=== PATIENT | female | born 1990 | race Caucasian/White ===

== ENCOUNTER 2024-02-29 01:25 | Inpatient (IN) | payer BC ==
[2024-02-29 01:52] VITALS: BMI 40.0
[2024-02-29 03:12] LABS: Creatinine, Urine 130.87 mg/dL (47-110)
[2024-02-29 03:51] LABS: MDiff Complete? YES; Mean Corpuscular HGB CONC 32.3 g/dL (32.0-36.0); Mean Corpuscular Hemoglobin 26.5 pg (27.0-33.0); Mean Corpuscular Volume 82.2 fL (81.6-98.3); Mean Platelet Volume 12.2 fL (7.4-10.4); Platelet Count 206 10x3/uL (150-450); RBC Distribution Width 14.6 % (11.5-14.5); Red Blood Cell (RBC) Count 3.77 10x6/uL (3.90-5.03); White Blood Cell (WBC) Count 10.7 10x3/uL (3.5-10.5)
[2024-02-29 03:52] LABS: ALT (SGPT) 7 U/L (8-55); AST (SGOT) 12 U/L (5-34); Albumin 2.4 g/dL (3.5-5.0); Alkaline Phosphatase 163 U/L (40-110); Anion Gap 15 mmol/L (10-20); BUN (Urea Nitrogen) 10 mg/dL (7.0-18.7); Bilirubin, Total 0.2 mg/dL (0.2-1.2); Calc. Creatinine Clearance 160 mL/min (70-130); Calcium 9.1 mg/dL (7.8-10.44); Carbon Dioxide 16 mmol/L (22-29); Chloride 110 mmol/L (98-107); Estimated GFR 107; Globulin 3.9 g/dL (2.4-3.5); Glucose 124 mg/dL (70-105); Protein, Total 6.3 g/dL (6.0-8.3); Sodium 137 mmol/L (136-145)
[2024-02-29 04:26] LABS: Bilirubin Neg (Negative); Blood, Urine Negative (Negative); Clarity Clear (Clear); Glucose, Urine (Dipstick) Normal (Negative); Ketone, Urine Negative (Negative); Leukocyte Negative (Negative); Nitrite Negative (Negative); Protein, Urine (Dipstick) 30 mg/dl (Neg-Trace); Specific Gravity, Urine 1.025 (1.005-1.030); Urobilinogen Normal mg/dL (Less than 2)
[2024-02-29 05:07] LABS: CAUTI Indications for Culture Pelvic or flank pain; RBC/HPF 0-3 HPF (0-3); Squamous Epithelial 0-3 HPF (0-3); WBC/HPF 0-3 HPF (0-3)
[2024-02-29 05:08] LABS: Bacteria/HPF 1+ HPF (None Seen); Mucous/LPF Rare LPF (<2+)
[2024-02-29 05:09] LABS: Urine Culture Reflex No No
[2024-02-29 05:14] LABS: Band 2 % (5-11); Lymphocytes 15 % (21-51); Monocytes 11 % (0-10); Neutrophil 70 % (42-75); Reactive Lymphocytes 2 % (0-10)
[2024-02-29] MEDS ORDERED: Labetalol HCl 100 MG/20 ML VIAL SLOW IVP PRN ×3 (05:19)
[2024-02-29] MEDS ORDERED: Lidocaine 1% (PF) 30 ML VIAL SC PRN (05:19)
[2024-02-29] MEDS ORDERED: Promethazine HCl 25 MG/ML VIAL IM PRN ×3 (05:19→16:45)
[2024-02-29] MEDS ORDERED: hydrALAZINE 20 MG/ML VIAL SLOW IVP PRN ×3 (05:19→16:45)
[2024-02-29] MEDS ORDERED: Lorazepam 2 MG/ML VIAL SLOW IVP PRN (05:19)
[2024-02-29] MEDS ORDERED: Acetaminophen 500 MG TAB PO PRN (05:19)
[2024-02-29] MEDS ORDERED: Calcium Gluc 4.6 MEQ/10 ML (100 MG/ML) SLOW IVP PRN (05:19)
[2024-02-29] MEDS ORDERED: fentaNYL 50 mcg/mL 1 mL Vial SLOW IVP PRN (05:19)
[2024-02-29 05:25] LABS: Large Platelets SLIGHT (None Seen); Platelet Adequacy Comment Appears Adequate; RBC Morph Comment Within Normal Limits
[2024-02-29] MEDS ORDERED: Penicillin G Potassium 5 MILL.UNITS in Sodium Chloride 0.9% 100 ML IVPB SCH (05:30)
[2024-02-29] MEDS ORDERED: Oxytocin 30 units/NS 500 ML 500 ML IV SCH ×2 (05:30)
[2024-02-29 06:45] LABS: HBsAg Index 0.23 S/CO (0-0.99); Hep B Surf Ag - L&D Non-Reactive S/CO (NonReactive)
[2024-02-29 06:46] LABS: Syphilis Antibody Nonreactive (Nonreactive); Syphilis Antibody Index 0.04 S/CO (<1.00 Non-Reactive)
[2024-02-29] MEDS ORDERED: Bupivacaine/Epinephrine 0.25% 30 ML VIAL ONE (08:00)
[2024-02-29] MEDS: Ondansetron PF 4 MG/2 ML Vial IVP PRN (08:31)
[2024-02-29] MEDS: fentaNYL 2 mcg/Ropivacaine 0.2% Epidural 100 ML CADD EPIDURAL SCH (09:01)
[2024-02-29] MEDS ORDERED: Moisturizing Cream (Eucerin) 113 GM JAR TOP PRN (09:16)
[2024-02-29] MEDS ORDERED: Lactated Ringer's 500 ML IV PRN (09:16)
[2024-02-29] MEDS ORDERED: diphenhydrAMINE 50 MG/ML VIAL IVP PRN (09:16)
[2024-02-29] MEDS ORDERED: Ondansetron PF 4 MG/2 ML Vial IVP PRN ×2 (09:16→16:45)
[2024-02-29] MEDS ORDERED: Acetaminophen 325 MG TAB PO PRN (09:16)
[2024-02-29] MEDS ORDERED: Naloxone HCl 0.4 mg/ml Vial IVP PRN ×2 (09:16)
[2024-02-29] MEDS ORDERED: ePHEDrine Sulfate 50 MG/10 ML VIAL SLOW IVP PRN (09:16)
[2024-02-29] MEDS: Lactated Ringer's 1,000 ML IV SCH (09:29)
[2024-02-29] MEDS ORDERED: Communication Order-Pharmacy FS SCH (09:30)
[2024-02-29] MEDS ORDERED: Penicillin G 2.5 MILL.units 2.5 MILL.UNITS in Premix 1 BAG IVPB SCH (09:30)
[2024-02-29] MEDS ORDERED: Bisacodyl 10 MG SUPP PR PRN (16:45)
[2024-02-29] MEDS ORDERED: Lanolin Ointment 7 GM TUBE TOP PRN (16:45)
[2024-02-29] MEDS ORDERED: HYDROcodone/Acetaminophen 5/325 mg Tablet PO PRN (16:45)
[2024-02-29] MEDS ORDERED: diphenhydrAMINE 25 MG CAP PO PRN (16:45)
[2024-02-29] MEDS ORDERED: Preparation H Ointment 28 GM TUBE PR PRN (16:45)
[2024-02-29] MEDS ORDERED: Milk Of Magnesia 30 ML UDCUP PO PRN (16:45)
[2024-02-29] MEDS ORDERED: Benzocaine-Menthol 82.5 ML CAN TOP PRN (16:45)
[2024-02-29] MEDS: fentaNYL/Ropivacaine Epidural 100 ML ONE (19:46)
[2024-02-29] MEDS: Ferrous Sulfate 325 MG TAB PO SCH (19:47)
[2024-02-29] MEDS: Ibuprofen 800 MG TAB PO SCH (21:51)
[2024-02-29] MEDS: Docusate 100 MG CAP PO SCH (21:51)
[2024-03-01] MEDS: HYDROcodone/Acetaminophen 5/325 mg Tablet PO PRN (02:36)
[2024-03-01] MEDS: Prenatal Vitamin 1 TAB PO SCH (09:26)
[2024-03-01] MEDS: Boostrix 0.5 ML (Tdap) VIAL (>/=7 yrs of age) IM ONE (09:27)
[2024-03-02 07:49] VITALS: BP 140/81; TEMP 98
== END 2024-03-02 12:40 | disposition home or self-care (01) | DRG 807 ==
LOC: CSHLD/OP 01:25 → CSHLD 06:12 → CSHPP 17:45
PROVIDERS: ADMIT Student in an Organized Health Care Education/Training Program; ATTEND Student in an Organized Health Care Education/Training Program
PROC: 10E0XZZ Delivery of Products of Conception, External Approach (ICD-10-PCS; principal; 2024-02-29)
PROC: 3E0334Z Introduction of Serum, Toxoid and Vaccine into Peripheral Vein, Percutaneous Approach (ICD-10-PCS; 2024-03-01)
DX: O13.4 Gestational [pregnancy-induced] hypertension without significant proteinuria, complicating childbirth (principal); Z37.0 Single live birth; O24.420 Gestational diabetes mellitus in childbirth, diet controlled; Z3A.38 38 weeks gestation of pregnancy; Z79.82 Long term (current) use of aspirin; Z79.899 Other long term (current) drug therapy
CPT/HCPCS: 36415; 36416; 51702; 80053; 81001; 82570; 84156; 85025; 85461; 86780; 86850; 86900; 86901; 87340; 90384; 96372; 99285; J2405; J7120